=== PATIENT | female | born 1950 | race Caucasian/White ===

== ENCOUNTER 2018-04-06 09:49 | Emergency (ER) | payer MEDICARE, OTHER ==
[2018-04-06] MEDS ORDERED: ATOR10TA24 PO (10:05)
[2018-04-06] MEDS ORDERED: oxyCODONE/ACETAMIN 5/325MG TH 2 TAB/BOTTLE PO ONE (10:15)
[2018-04-06] MEDS ORDERED: ONDANSETRON 4 MG ODT TABDP SL ONE (10:15)
--- NOTE | 2018-04-06 10:16 | ER Report ---
History and Physical Time Seen By MD: 10:14 Hx. of Stated Complaint: fell on a step. landed on rt arm and shoulder HPI/ROS CHIEF COMPLAINT: Right arm pain, left knee pain status post fall. HISTORY OF PRESENT ILLNESS: Patient is a 68-year-old female who presents to the emergency department status post a fall that occurred in [facility]; patient normally lives in [place] but our emergency department was closer. She has significant pain with any type of range of motion of the right upper shoulder. Also complaining of some pain to her lateral aspect of the right neck. She denies any loss of consciousness. Patient did also strike her left knee and is tenderness to the patellar area. She denies any other injuries at this time. REVIEW OF SYSTEMS: Respiratory: No cough, no dyspnea. Cardiovascular: No chest pain, no palpitations. Gastrointestinal: No vomiting, no abdominal pain. Musculoskeletal: Right shoulder pain, left knee pain Allergies: Coded Allergies: No Known Drug Allergies (Unverified , 04/06/18) Home Meds Active Scripts Ondansetron Hcl (ZOFRAN) 4 Mg Tablet, 4 MG PO Q8H for Nausea, #15 TAB 0 Refills Prov:BENI ANNE MD 04/06/18 Oxycodone Hcl/Acetaminophen (PERCOCET 5-325 MG TABLET) 1 Each Tablet, 1-2 EACH PO Q4-6H for PAIN, #30 TAB 0 Refills Prov:BENI ANNE MD 04/06/18 Reported Medications Atorvastatin Calcium (LIPITOR) 10 Mg Tablet, 1 TAB PO QDAY, TAB 04/06/18 Past Medical/Surgical History Hypercholesterolemia Hx Substance Use Disorder: No Hx Alcohol Use: No Constitutional Vital Sign - Last 24 Hours 04/06/18 04/06/18 04/06/18 04/06/18 09:49 09:59 10:01 10:04 Temp 97.9 Pulse ??? 79 76 Resp 18 B/P (MAP) 177/104 177/104 (128) Pulse Ox 96 95 O2 Delivery Room Air 04/06/18 04/06/18 04/06/18 04/06/18 10:19 10:34 10:49 11:04 Pulse ? 04/06/18 04/06/18 04/06/18 04/06/18 11:18 11:19 11:24 11:26 Pulse 71 Resp 12 B/P (MAP) 147/137 (140) 155/89 (111) 157/93 (114) Pulse Ox 98 04/06/18 04/06/18 04/06/18 04/06/18 11:30 11:34 11:35 11:40 Pulse 100 107 B/P (MAP) 165/98 (120) 181/106 (131) Pulse Ox 97 95 04/06/18 04/06/18 04/06/18 04/06/18 11:45 11:50 11:55 12:00 Pulse 79 79 B/P (MAP) 176/123 (140) 164/101 (122) 168/102 (124) 154/91 (112) Pulse Ox 97 94 04/06/18 04/06/18 04/06/18 04/06/18 12:05 12:10 12:15 12:20 Pulse 81 B/P (MAP) 146/86 (106) 153/99 (117) 141/86 (104) 143/89 (107) Pulse Ox 89 04/06/18 04/06/18 12:25 12:30 Pulse 80 B/P (MAP) 132/85 (101) Pulse Ox 97 Physical Exam General/Constitutional: Patient is awake, alert, nontoxic and in no acute respiratory distress. Head: Normocephalic and atraumatic. Eyes: Conjunctival clear, Pupils are equal and reactive to light. Extraocular muscles are intact and symmetrical. Sclera are clear and anicteric. Ears:External canals are clear. Tympanic membranes are clear with normal landmarks and light reflex. Neck: Supple, no adenopathy. Cardiovascular: Heart is regular rate and rhythm without audible murmurs, rubs or gallops. Pulmonary: Lungs are clear to auscultation bilaterally. There are no wheezes, rales, or rhonchi. Chest rise is symmetrical Abdomen: Soft, nontender, no guarding or peritoneal signs. Extremities: Patient has a step-off deformity to the right shoulder. She has limited range of motion secondary to pain. She also has some lateral right cervical neck tenderness. Also tenderness to the patella of the left knee. Neuro: Alert and oriented X3, C. Skin: No rashes, skin is warm dry and well perfused. Medical Decision Making ED Course/Re-evaluation Clinical Indication for ER IV: IV Access ED Course Please see the procedural sedation report for all medication dosages and times. Procedure: Dislocation reduction. An attempt was made to reduce the shoulder using multiple techniques including the Milch technique as well as traction countertraction which was unsuccessful. I did call and speak with Dr. Wade Schaeffer who immediately came in to see the patient. He was able to reduce the shoulder under procedural sedation. The shoulder was reduced in the usual fashion without complications. Post reduction the patient's neurovascular exam is normal. Post reduction x-ray demonstrates reduction of the joint to the anatomic position. The procedure was performed Dr. Wade Schaeffer Procedure: Procedural sedation. A pre-sedation evaluation was completed on the patient at 1120. Patient is an appropriate candidate for procedural sedation. The risks of the sedation were discussed with the patient. A time out was completed. The patient was sedated with a total of 70 mg of propofol and 150 mg of ketamine. The patient was monitored with continuous pulse oximetry and bus monitor. There were no complications and no significant hypoxemia. I remained at the bedside for the sedation. The total time I spent in the procedural sedation was 60 minutes Decision to Disposition Date: Apr 06, 2018 Decision to Disposition Time: 14:03 Depart Departure Latest Vital Signs Vital Signs Date Time Temp Pulse Resp B/P (MAP) Pulse Ox O2 Delivery O2 Flow Rate FiO2 04/06/18 12:30 80 97 04/06/18 12:25 132/85 (101) 04/06/18 11:19 12 04/06/18 09:59 97.9 Room Air Impression: Primary Impression: Shoulder dislocation Additional Impression: Shoulder fracture, right Condition: Improved Disposition: HOME OR SELF-CARE New Scripts Ondansetron Hcl (ZOFRAN) 4 Mg Tablet 4 MG PO Q8H for Nausea, #15 TAB 0 Refills Prov: BENI ANNE MD 04/06/18 Oxycodone Hcl/Acetaminophen (PERCOCET 5-325 MG TABLET) 1 Each Tablet 1-2 EACH PO Q4-6H for PAIN, #30 TAB 0 Refills Prov: BENI ANNE MD 04/06/18 Patient Instructions: How to Use a Sling (GEN), Shoulder Dislocation (ED) Additional Instructions: Wear the sling and swath until you're seen by orthopedics. He should limit or if possible 11 8 any type of range of motion to the shoulder specifically any type of external rotation as discussed. Follow up with Dr Rankin in the [place] office of [facility]. Call sunday to schedule an appointment [address] [facility], [facility] [place] [address] Problem Qualifiers Primary Impression: Shoulder dislocation Encounter type: initial encounter Laterality: right Qualified Codes: S43.004A - Unspecified dislocation of right shoulder joint, initial encounter Additional Impression: Shoulder fracture, right Encounter type: initial encounter Fracture type: closed Qualified Codes: S42.91XA - Fracture of right shoulder girdle, part unspecified, initial encounter for closed fracture BENI ANNE MD Apr 06, 2018 10:16
[2018-04-06] MEDS ORDERED: LORazepam 2 MG/ML VIAL IVP ONE (10:55)
[2018-04-06] MEDS ORDERED: MORPHINE 4 MG/ML SDV IVP ONE (10:55)
[2018-04-06] MEDS ORDERED: PROPOFOL EMUL 10MG/ML 20 ML VL IV ONE (11:10)
[2018-04-06] MEDS ORDERED: KETAMINE HCL 500 MG/5 ML VIAL IVP ONE (11:10)
[2018-04-06] MEDS ORDERED: ONDANSETRON 4 MG/2 ML VIAL IVP ONE (11:10)
--- NOTE | 2018-04-06 11:20 | RADIOLOGY IMAGING REPORT ---
FACILITY: [facility] PATIENT NAME: Trini Hurd : 1950 MR: [id number] V: [id number] EXAM DATE: ORDERING PHYSICIAN: BENI ANNE TECHNOLOGIST: Location: [facility] [place] Patient: Trini Hurd : 1950 Visit/Account:[id number] Date of Sevice: 04/06/2018 KNEE 3 VIEW LEFT COMPARISONS: None. ADDITIONAL PERTINENT HISTORY: Fall with knee pain FINDINGS: Osseous structures: Subchondral sclerosis and osteophyte formation involving the medial compartment o f the left knee. Otherwise negative Joint spaces: Mild joint space narrowing involving the medial compartment of the left knee. Surrounding soft tissues: Negative. IMPRESSION: 1. Osteoarthritic changes involving the left knee. 2. No acute appearing bony abnormalities. Report Dictated By: Daniel Nguyen MD at 04/06/2018 11:15 AM Report E-Signed By: Daniel Nguyen MD at 04/06/2018 11:16 AM WSN:[id number]
--- NOTE | 2018-04-06 11:20 | RADIOLOGY IMAGING REPORT ---
[place] [facility] [place] NAME: Trini Hurd : 1950 MR: [id number] V: [id number] EXAM DATE: ORDERING PHYSICIAN: BENI ANNE TECHNOLOGIST: Location: [facility] Patient: Trini Hurd : 1950 Visit/Account:[id number] Date of Sevice: 04/06/2018 SHOULDER MIN 2 VIEWS RIGHT COMPARISONS: None. ADDITIONAL PERTINENT HISTORY: Fall FINDINGS: Osseous structures: Displaced fracture involving the greater tuberosity. Joint spaces: Anterior dislocation about the right shoulder. Surrounding soft tissues: Negative. IMPRESSION: 1. Anterior dislocation of the right shoulder with a displaced fracture involving the greater tuberos ity. Report Dictated By: Daniel Nguyen MD at 04/06/2018 11:12 AM Report E-Signed By: Daniel Nguyen MD at 04/06/2018 11:15 AM WSN:[id number]
--- NOTE | 2018-04-06 11:21 | RADIOLOGY IMAGING REPORT ---
FACILITY: [facility] PATIENT NAME: Trini Hurd : 1950 MR: [id number] V: [id number] EXAM DATE: ORDERING PHYSICIAN: BENI ANNE TECHNOLOGIST: Location: [facility] [place] Patient: Trini Hurd : 1950 Visit/Account:[id number] Date of Sevice: 04/06/2018 CERVICAL SPINE 2 OR 3 VIEW COMPARISONS: None. ADDITIONAL PERTINENT HISTORY: Pain FINDINGS: Vertebral body heights and alignment: Minimal anterior listhesis of C4 on C5. Vertebral bodies: Facet hypertrophic changes involving the cervical spine. Anteriorly directed oste ophytes at C5-C6. Disc spaces: Mild disc space narrowing at C5-C6. Craniocervical junction: Negative. Cervical thoracic junction: Negative. Prevertebral soft tissues: Negative. Surrounding soft tissues: Negative. IMPRESSION: 1. Spondylitic change involving the cervical spine. 2. No acute appearing bony abnormalities. Report Dictated By: Daniel Nguyen MD at 04/06/2018 11:17 AM Report E-Signed By: Daniel Nguyen MD at 04/06/2018 11:18 AM WSN:[id number]
--- NOTE | 2018-04-06 12:10 | RADIOLOGY IMAGING REPORT ---
[place] [facility] [place] NAME: Trini Hurd : 1950 MR: [id number] V: [id number] EXAM DATE: ORDERING PHYSICIAN: BENI ANNE TECHNOLOGIST: Location: [facility] [place] Patient: Trini Hurd : 1950 Visit/Account:[id number] Date of Sevice: 04/06/2018 SHOULDER 1 VIEW RIGHT COMPARISONS: Earlier dated same day ADDITIONAL PERTINENT HISTORY: Follow-up FINDINGS: Osseous structures: Continued findings of a distracted fracture involving the greater tuberosity of t he proximal right humerus. Joint spaces: Continued anterior dislocation of the humeral head in relation to the glenoid. Surrounding soft tissues: Negative. IMPRESSION: 1. Continued anterior dislocation at the right glenohumeral joint. 2. Continued distracted fracture of the greater tuberosity of the right shoulder. Report Dictated By: Daniel Nguyen MD at 04/06/2018 12:05 PM Report E-Signed By: Daniel Nguyen MD at 04/06/2018 12:06 PM WSN:[id number]
[2018-04-06 12:25] VITALS: BP 132/85
[2018-04-06] MEDS ORDERED: ONDA4TAB97 PO (12:26)
[2018-04-06] MEDS ORDERED: OXYC-865 PO (12:26)
--- NOTE | 2018-04-06 12:35 | RADIOLOGY IMAGING REPORT ---
FACILITY: [facility] PATIENT NAME: Trini Hurd : 1950 MR: [id number] V: [id number] EXAM DATE: ORDERING PHYSICIAN: BENI ANNE TECHNOLOGIST: Location: [facility] [place] Patient: Trini Hurd : 1950 Visit/Account:[id number] Date of Sevice: 04/06/2018 EXAMINATION: Right shoulder radiographs 2 views HISTORY: Post reduction COMPARISON: April 06, 2018 FINDINGS: Frontal and scapula Y views obtained. Previously seen dislocation has been reduced. No definitive mal alignment at the glenohumeral joint space based on the scapula Y view. Notably glenohumeral alignment is not well characterized on the frontal view secondary to obliquity. Displaced fracture fragment al [place] the proximal lateral aspect of the humerus is less visible compared to prior given different posi tioning of the humerus. The visible right lung is clear. IMPRESSION: Reduction of the previously seen humeral dislocation. The acute proximal lateral humerus fracture fragment is again seen but is less visible secondary to d ifferent positioning of the humerus. Report Dictated By: Josue Grimaldo MD at 04/06/2018 12:30 PM Report E-Signed By: Josue Grimaldo MD at 04/06/2018 12:31 PM WSN:[id number]
[2018-04-06] MEDS ORDERED: ONDANSETRON 4 MG/2 ML VIAL ONE (12:48)
== END 2018-04-06 14:29 | disposition home or self-care (01) ==
LOC: ER 10:06
DX: S43.004A Unspecified dislocation of right shoulder joint, initial encounter (principal); S42.91XA Fracture of right shoulder girdle, part unspecified, initial encounter for closed fracture
CPT/HCPCS: 23650; 72040; 73020; 73030; 73562; 99156; 99157; 99285; A4565; J2060; J2270; J2405; J2704; L3982; Q0162; 99153; S0119